=== PATIENT | female | born 1990 | race Two or more races ===

== ENCOUNTER 2017-11-17 10:36 | Emergency (ER) | payer OTHER ==
[2017-11-17 10:45] VITALS: BP 127/90
[2017-11-17] MEDS ORDERED: IBUPROFEN 800 MG TAB PO ONE (11:30)
== END 2017-11-17 11:48 | disposition home or self-care (01) ==
LOC: ER 10:36
DX: S20.212A Contusion of left front wall of thorax, initial encounter (principal); W19.XXXA Unspecified fall, initial encounter; Y93.89 Activity, other specified; Y99.8 Other external cause status; Y92.89 Other specified places as the place of occurrence of the external cause
CPT/HCPCS: 71101; 81025

== ENCOUNTER 2023-01-30 18:19 | Emergency (ER) | payer MEDICAID, OTHER ==
[~2023-01-30] VITALS: Ht 154.9 cm; Wt 61.3 kg
[2023-01-30 22:06] VITALS: BP 127/93; PULSE 91; RESP 18; TEMP 97.4; O2SAT 97
[2023-01-31] MEDS ORDERED: IOHEXOL 300 MG/ML 100ML BOTTLE IJ ONE (01:22)
[2023-01-31 02:20] LABS: Alkaline Phosphatase 82 U/L (46-116); Anion Gap 7 (5-15); Blood Urea Nitrogen 11 mg/dL (9-23); Calcium 8.8 mg/dL (8.7-10.4); Carbon Dioxide 24 mmol/L (20-30); Chloride 107 mmol/L (98-107); Glucose 100 mg/dL (74-106); Sodium 138 mmol/L (136-145)
[2023-01-31 02:21] LABS: Albumin 4.3 g/dL (3.2-4.8); Aspartate Aminotransferase 11 U/L (13-40); Bilirubin, Total 0.4 mg/dL (0.2-1.0); Total Protein 7.3 g/dL (5.7-8.2)
[2023-01-31 02:23] LABS: Alanine Aminotransferase 9 U/L (7-40)
== END 2023-01-31 04:47 | disposition home or self-care (01) ==
LOC: ER 18:19
DX: S19.9XXA Unspecified injury of neck, initial encounter (principal); Y04.2XXA Assault by strike against or bumped into by another person, initial encounter; Y93.89 Activity, other specified; Y92.89 Other specified places as the place of occurrence of the external cause; Y99.8 Other external cause status
CPT/HCPCS: 36415; 70498; 71101; 80053; 99285; Q9967